=== PATIENT | female | born 1950 | race Caucasian/White ===

== ENCOUNTER 2018-02-10 13:12 | Emergency (ER) | payer BC ==
[~2018-02-10] VITALS: Ht 157.5 cm; Wt 75.0 kg
[~2018-02-10 13:12] MED LIST: ASPIRIN E.C.325 MG PO; CLARITIN; ESTROGEN; PRILOSEC10 MG PO
[2018-02-10 13:20] VITALS: TEMP 99.3
[2018-02-10] MEDS ORDERED: WELCHOL 625MG625 MG PO (13:34)
[2018-02-10] MEDS ORDERED: REMERON30 MG PO (13:34)
[2018-02-10] MEDS ORDERED: WELLBUTRIN 75MG75 MG PO (13:34)
[2018-02-10] MEDS ORDERED: CALCIUM CARBON650 M2 (13:35)
[2018-02-10] MEDS ORDERED: ASPIRIN 81M81 MG/TA2 PO (13:35)
[2018-02-10] MEDS ORDERED: PRILOSEC 20MG20 MG PO (13:35)
[2018-02-10] MEDS ORDERED: VITAMIN B100 CO1 TAB (13:36)
[2018-02-10] MEDS ORDERED: NATURAL E400 IU PO (13:36)
[2018-02-10] MEDS ORDERED: ZOVIRAX 200MG200 MG PO (13:37)
[2018-02-10 13:39] LABS: BASO # 0.1 (0.0-0.2); BASO % 0.5 % (0.0-2.0); EOS # 0.3 (0.0-0.7); EOS % 2.3 % (0-4.0); GRAN # 6.9 (1.4-6.5); GRAN % 54.7 % (42.2-75.2); HEMATOCRIT 41.6 % (37.0-47.0); HEMOGLOBIN 13.8 g/dl (12.5-16.0); LYMPH # 4.5 (1.2-3.4); LYMPH % 35.9 % (20.0-51.0); MEAN CELL VOLUME 90 fl (80.0-100.0); MEAN CORPUSCULAR HEMOGLOBIN 30 pg (27.0-31.0); MEAN CORPUSCULAR HGB CONC 33 g/dl (33.0-37.0); MEAN PLATELET VOLUME 9.3 fl (7.4-10.4); MONO # 0.8 (0.1-0.6); MONO % 6.4 % (1.7-9.3); PLATELET COUNT 427 K/mm3 (130-400); RED BLOOD COUNT 4.61 M/mm3 (4.10-5.30); REDCELL DISTRIBUTION WIDTH-CV 13.7 % (11.5-14.5)
[2018-02-10 13:44] LABS: INR 0.9 (0.8-3.0); PROTHROMBIN TIME 9.8 SECONDS (9.7-12.8)
[2018-02-10 13:47] LABS: PARTIAL THROMBOPLASTIN TIME 28.2 SECONDS (26.0-37.0)
[2018-02-10 14:35] LABS: ALANINE AMINOTRANSFERASE 35 U/L (9-52); ALBUMIN 4.5 gm/dL (3.5-5.0); ALKALINE PHOSPHATASE 90 U/L (50-136); ANION GAP 14 mmol/L (7-16); AST,SGOT 36 U/L (15-37); BILIRUBIN,TOTAL 0.3 mg/dL (0.0-1.0); BLOOD UREA NITROGEN 11 mg/dL (7-17); CALCIUM 9.5 mg/dL (8.4-10.2); CARBON DIOXIDE 21 mmol/L (22-30); CHLORIDE 104 mmol/L (98-107); CREATININE, serum 1.03 mg/dL (0.52-1.25); GLUCOSE 110 mg/dL (74-106); LIPASE 53 U/L (23-300); POTASSIUM 3.6 mmol/L (3.4-5.0); SODIUM 138 mmol/L (137-145); TOTAL PROTEIN 7.4 gm/dL (6.4-8.2)
[2018-02-10 14:56] LABS: TROPONIN-I < 0.012 ng/mL (0.000-0.034)
[2018-02-10 16:38] VITALS: BP 132/81; PULSE 80
== END 2018-02-10 16:39 | disposition home or self-care (01) ==
LOC: COL.ER 13:12
PROVIDERS: Emergency Medicine
DX: K21.9 Gastro-esophageal reflux disease without esophagitis (principal); R07.89 Other chest pain; I25.10 Atherosclerotic heart disease of native coronary artery without angina pectoris; Z90.710 Acquired absence of both cervix and uterus; Z79.82 Long term (current) use of aspirin

== ENCOUNTER 2018-02-17 13:27 | Emergency (ER) | payer BC ==
[~2018-02-17] VITALS: Ht 157.5 cm; Wt 75.0 kg
[~2018-02-17 13:27] MED LIST changes: +ASPIRIN 81M81 MG/TA2 PO; +CALCIUM CARBON650 M2; +NATURAL E400 IU PO; +PRILOSEC 20MG20 MG PO; +REMERON30 MG PO; +VITAMIN B100 CO1 TAB; +WELCHOL 625MG625 MG PO; +WELLBUTRIN 75MG75 MG PO; +ZOVIRAX 200MG200 MG PO
[2018-02-17 13:31] VITALS: TEMP 98.6
[2018-02-17 14:01] LABS: BASO # 0.1 (0.0-0.2); BASO % 0.3 % (0.0-2.0); EOS # 0.1 (0.0-0.7); EOS % 0.4 % (0-4.0); GRAN # 14.1 (1.4-6.5); GRAN % 72.3 % (42.2-75.2); HEMATOCRIT 40.6 % (37.0-47.0); HEMOGLOBIN 13.6 g/dl (12.5-16.0); LYMPH # 3.9 (1.2-3.4); MEAN CELL VOLUME 90 fl (80.0-100.0); MEAN CORPUSCULAR HEMOGLOBIN 30 pg (27.0-31.0); MEAN CORPUSCULAR HGB CONC 34 g/dl (33.0-37.0); MEAN PLATELET VOLUME 9.2 fl (7.4-10.4); MONO # 1.3 (0.1-0.6); MONO % 6.6 % (1.7-9.3); PLATELET COUNT 385 K/mm3 (130-400); RED BLOOD COUNT 4.51 M/mm3 (4.10-5.30); REDCELL DISTRIBUTION WIDTH-CV 13.5 % (11.5-14.5)
[2018-02-17 14:14] LABS: ALANINE AMINOTRANSFERASE 30 U/L (9-52); ALBUMIN 4.5 gm/dL (3.5-5.0); ALKALINE PHOSPHATASE 88 U/L (50-136); ANION GAP 12 mmol/L (7-16); AST,SGOT 21 U/L (15-37); BILIRUBIN,TOTAL 0.4 mg/dL (0.0-1.0); BLOOD UREA NITROGEN 13 mg/dL (7-17); C-REACTIVE PROTEIN 0.7 mg/dL (0.0-0.9); CALCIUM 9.8 mg/dL (8.4-10.2); CARBON DIOXIDE 22 mmol/L (22-30); CHLORIDE 104 mmol/L (98-107); CREATININE, serum 1.12 mg/dL (0.52-1.25); GLUCOSE 97 mg/dL (74-106); POTASSIUM 3.5 mmol/L (3.4-5.0); SODIUM 138 mmol/L (137-145); TOTAL PROTEIN 7.4 gm/dL (6.4-8.2)
[2018-02-17 14:24] LABS: TROPONIN-I < 0.012 ng/mL (0.000-0.034)
[2018-02-17 17:11] VITALS: BP 127/81; PULSE 78
== END 2018-02-17 17:17 | disposition home or self-care (01) ==
LOC: COL.ER 13:27
PROVIDERS: Physician Assistant
DX: R07.89 Other chest pain (principal); Z98.890 Other specified postprocedural states; Z90.710 Acquired absence of both cervix and uterus

== ENCOUNTER 2018-03-10 11:52 | Day surgery (SDC) | payer BC ==
[2018-03-10] VITALS (8 sets, daily range): BP systolic 105–142; BP diastolic 63–78; PULSE 76–90; TEMP 97.9–98.1
[~2018-03-10] VITALS: Ht 157.5 cm; Wt 69.5 kg
[~2018-03-10 11:52] MED LIST changes: -CALCIUM CARBON650 M2; +CALCIUM CITRAT950 MG PO; +PRIL40 PO; -PRILOSEC 20MG20 MG PO
[2018-03-10] MEDS ORDERED: CARAFATE 1GM1 G PO (13:50)
[2018-03-10] MEDS ORDERED: ZANTAC 150MG T150 MG PO (13:50)
[2018-03-10] MEDS ORDERED: VITAMIN B COMPL1 SGL (13:54)
[2018-03-11] VITALS: BP 105/75; PULSE 65; TEMP 98.3
[2018-03-11 04:41] VITALS: BP 136/59; PULSE 73; TEMP 97.8
[2018-03-11 07:58] VITALS: BP 122/67; PULSE 78; TEMP 97.8
[2018-03-11 11:41] VITALS: BP 109/58; PULSE 75; TEMP 97.9
[2018-03-11 19:01] VITALS: BP 125/62; PULSE 94; TEMP 98
[2018-03-12 00:55] VITALS: BP 125/65; PULSE 65; TEMP 98.7
[2018-03-12 04:54] VITALS: BP 139/64; PULSE 81; TEMP 99
[2018-03-12 07:49] VITALS: BP 145/67; PULSE 83; TEMP 97.7
== END 2018-03-12 11:54 | disposition home or self-care (01) ==
LOC: SDCO 11:52 → SURG 14:00 → EDSTATUS 14:00 → SURG 19:47 → SDCO 03-12 11:54
DX: K21.9 Gastro-esophageal reflux disease without esophagitis (principal); K44.9 Diaphragmatic hernia without obstruction or gangrene; Z79.899 Other long term (current) drug therapy; Z79.82 Long term (current) use of aspirin; I10 Essential (primary) hypertension; E78.00 Pure hypercholesterolemia, unspecified; F32.9 Major depressive disorder, single episode, unspecified
CPT/HCPCS: OP; C1713; C1781; J0360; J0690; J1170; J2405; J2704; J2765; J3010; J7120

== ENCOUNTER 2023-11-02 11:42 | Day surgery (SDC) | payer BC ==
[~2023-11-02] VITALS: Ht 157.5 cm; Wt 71.1 kg
[2023-11-02] VITALS (12 sets, daily range): BP systolic 96–152; BP diastolic 61–77; PULSE 72–89; TEMP 98.1
[~2023-11-02 11:42] MED LIST changes: +CARAFATE 1GM1 G PO; +VITAMIN B COMPL1 SGL; +ZANTAC 150MG T150 MG PO
[2023-11-02] MEDS ORDERED: 1/2 NS 1,000 ML IV SCH (12:00)
[2023-11-02] MEDS ORDERED: HCTZ 25MG TAB25 MG PO (12:29)
[2023-11-02] MEDS ORDERED: REMERON30 MG PO (12:29)
[2023-11-02] MEDS ORDERED: PROTONIX 40MG T40 MG PO (12:30)
[2023-11-02] MEDS ORDERED: K-DUR20 MEQ PO (12:31)
[2023-11-02] MEDS ORDERED: CALTRATE-600 W600 MG PO (12:32)
[2023-11-02] MEDS ORDERED: NATURAL E400 IU PO (12:33)
[2023-11-02] MEDS ORDERED: VITAMINC1000TA (12:33)
[2023-11-02] MEDS ORDERED: ASPIRIN 81M81 MG/TA2 PO (12:35)
[2023-11-02 12:50] LABS: HEMATOCRIT 42.5 % (37.0-47.0); HEMOGLOBIN 14.2 g/dl (12.5-16.0); MEAN CELL VOLUME 91 fl (80.0-100.0); MEAN CORPUSCULAR HEMOGLOBIN 30 pg (27-31); MEAN CORPUSCULAR HGB CONC 33 g/dl (33.0-37.0); MEAN PLATELET VOLUME 9.5 fl (7.4-10.4); PLATELET COUNT 312 K/mm3 (130-400); RED BLOOD COUNT 4.68 M/mm3 (4.10-5.30); REDCELL DISTRIBUTION WIDTH-CV 13.3 % (11.5-14.5)
[2023-11-02 12:55] LABS: PROTHROMBIN TIME 10.4 SECONDS (9.7-12.8)
[2023-11-02 12:57] LABS: PARTIAL THROMBOPLASTIN TIME 28.2 SECONDS (26.0-37.0)
[2023-11-02 13:09] LABS: CREATININE, serum 1.13 mg/dL (0.57-1.11); POTASSIUM 3.7 mEq/L (3.5-4.5)
--- NOTE | 2023-11-02 13:54 | NUR ---
Please see merge documentation for record of interventions,
[2023-11-02] MEDS ORDERED: Midazolam 2 MG/2 ML VIAL IV SCH (14:11)
[2023-11-02] MEDS ORDERED: fentaNYL 50 MCG/ML 2 ML VIAL IV SCH (14:12)
[2023-11-02] MEDS ORDERED: Verapamil 2.5 MG/ML 2 ML VIAL IA SCH (14:13)
[2023-11-02] MEDS ORDERED: Heparin 1,000 UNITS/ML 10 ML Multi-Dose VIAL IV SCH (14:15)
[2023-11-02] MEDS ORDERED: Heparin 1,000 UNITS/ML 10 ML Multi-Dose VIAL IA SCH (14:15)
[2023-11-02] MEDS ORDERED: Nitroglycerin 100 MCG/ML (Cath Lab) 10 ML VIAL IA SCH (14:16)
[2023-11-02] MEDS ORDERED: Iohexol 350 - 100 ML VIAL INCOR ONE (14:17)
--- NOTE | 2023-11-02 14:48 | NUR ---
Krystal is transferred back to room 9 in the express unit. She is awake and alert, pwd with reg and unlabored resps. TR band in place, rt radial site looks good with no evidence of hematoma or bleeding. Bedside report and handoff of care to Natalie TREADWELL.
--- NOTE | 2023-11-02 16:17 | NUR ---
Pt called out requesting additional juice and with c/o pain to rt forearm. Pt had been resting arm on pillow post radial access for LHC. TR band in place. Pt stated she felt arm was tight and painful. Midforearm firm to touch. experimental machining lab manager nurse Sarika called at [phone] to have their staff assess site as pt's primary nurse is off floor. Sarika states they are all in a case, but will come once available, she has to get off phone prior to full report of pt's complaints being given. Pressure is held to mid forearm for 15 mins by this nurse. Following pressure, forearm is soft to palpation. No discoloration to arm or hand, and sensation and pulse intact. Pt states forearm feels better following release of pressure, but does report it is wax pot tender to palpation. Report given to pt's primary nurse Natalia. Areas of firm, raised area to mid forearm were marked. Call light in reach.
--- NOTE | 2023-11-02 16:47 | NUR ---
Pt still has some tenderness at the right forearm. Site is softer to the touch. No bleeding at the right radial site.
--- NOTE | 2023-11-02 18:23 | NUR ---
Pt ambulated to EU9 accompanied by . Pt was scheduled for a [facility]. Consent for the procedure signed. EKG done. IV started, labs drawn. Meds and HX reviewed with the pt. Pt was preped by chemical laboratory chief nurse, and taken down to chemical laboratory chief. Pt came back to EU9 post procedure. Right radial wrist assessed, site clean, dry, and intact. While recovering pt stated they were having some tenderness at the site, Bharathi TREADWELL assessed the site and applied pressure. made aware, gave the ok to wrap a ALIYA bandage around the site. Site remanied soft, by tender to the touch. Pt was bedrest for 2 hrs, at the 3rd hr after getting the ok, air was then removed from the right radial band. Air was removed about every 15 mins, 2 mls at a time. No bleeding occured during the air removal. Once all the air was released a band-aid was placed over the site and the deflated band was reapplied as a reminder to limit extremity use. The forearm was continuous still operator. Discharge educatiom and information given to the pt. No questions. IV was dc'd, and the pt exited the unit by wheelchair to husbands car.
== END 2023-11-02 18:27 | disposition home or self-care (01) ==
LOC: COL.CAR 11:42
PROVIDERS: Internal Medicine Cardiovascular Disease
DX: I25.10 Atherosclerotic heart disease of native coronary artery without angina pectoris (principal); I50.1 Left ventricular failure, unspecified; I11.0 Hypertensive heart disease with heart failure; Z79.899 Other long term (current) drug therapy
CPT/HCPCS: J1644; J2250; J3010; Q9967